=== PATIENT | male | born 1990 | race Caucasian/White ===

== ENCOUNTER 2023-03-10 23:27 | Emergency (ER) | payer MEDICAID, SELFPAY ==
[2023-03-10 23:29] VITALS: BP 154/69; PULSE 83; RESP 18; TEMP 36.6; O2SAT 96; BMI 25.6
--- NOTE | 2023-03-11 00:16 | HMH.EDGENADL ---
Discharge Plan Disposition Patient Disposition: Home, Self-Care Prescriptions Prescriptions: New lidocaine 5 % adhesive patch,medicated 1 patch topical DAILY PRN (Reason: pain) Qty: 30 0RF Rx Instructions: leave on most painful area for up to 12 hrs cyclobenzaprine 5 mg tablet 10 mg PO TID PRN (Reason: muscle spasm) Qty: 60 0RF Referrals Follow up/Referrals: Provider,Referral, MD [Primary Care Provider] - See instructions Activity Restrictions/Add. Instructions Additional Instructions/Restrictions: Please take Tylenol and ibuprofen as needed for pain. Please use Flexeril and lidocaine patches as needed for pain. Please follow-up with your primary care provider. Please return to the emergency department if you develop any new or worsening symptoms or become concerned for your health. Clinical Impressions Clinical Impression: Sciatica of left side Discharge ED Provider: Jeffery Cowan General Adult HPI General Chief complaint: PAIN Stated complaint: back pain, left side Time Seen by Provider: 03/11/23 00:16 Mode of Arrival: Ambulatory Source of Information: Patient Limitations: No Limitations Description of Symptoms (Recalled from ER Triage Doc. by RN): Presents to ED with c/o 8/10 left sciatic nerve pain x 1hour. Patient reports pain is severe and has caused a severe hdx and vomiting. 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 PMH: scoliosis and arthritis. History of Present Illness HPI narrative: 32-year-old male, history of scoliosis and chronic bilateral intermittent sciatica presents with worsening left-sided sciatic pain. He reports it starts in his left side, radiating down his left buttock and his left thigh. Reports some intermittent numbness in the leg as well. Denies any weakness. Denies any recent trauma fever or illness. 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 Related Data Previous Rx's Medication Instructions Recorded cyclobenzaprine 5 mg tablet 10 mg PO TID PRN muscle spasm #60 03/11/23 tabs lidocaine 5 % topical patch 1 patch topical DAILY PRN pain #30 03/11/23 ea Allergies Allergy/AdvReac Type Severity Reaction Status Date / Time No Known Allergies Allergy Verified 03/11/23 00:25 [facility] Disclaimer: The information contained in this section may have been updated after the patient was seen, as this information can be updated by other users. Social History Smoking Status: Current every day smoker alcohol intake: former current occupational status: employed Travel in the last 8 weeks: None ROS Obtained: Yes All systems reviewed & no additional complaints except as documented Physical Exam General General appearance: alert Comment: Uncomfortable appearing secondary to pain Head Head exam: atraumatic and normocephalic Eye Eye exam: Present normal appearance, PERRL and EOMI ENT ENT exam: Present normal oropharynx and normal external ear exam Neck Neck exam: Present normal inspection and full ROM Chest Chest inspection: Present normal inspection and symmetric chest wall rise; Absent tenderness Respiratory Respiratory exam: Present normal lung sounds bilaterally; Absent respiratory distress Cardiovascular Cardiovascular exam: Present regular rate and normal rhythm Abdominal Exam Abdominal exam: Present soft; Absent distention, tenderness or guarding Extremities Exam Extremities exam: Present normal inspection and other (Exacerbation of posterior radicular symptoms with left leg movement); Absent edema or joint swelling Back Exam Back exam: Present normal inspection and tenderness (No midline lumbar tenderness. Left SI/paraspinal tenderness noted.) Neurological Exam Neurological exam: Present alert and oriented X3; Absent motor sensory deficit Psychiatric Psychiatric exam: Present normal affect and normal mood Skin Skin exam: Present warm, dry and normal color Lymphatic Lymphatic Findings: no adenopathy Medical Decision Making Medical
--- NOTE | 2023-03-11 00:38 | PC.NURSE ---
V/O for Oxy IR 5mg PO per
[2023-03-11 01:03] VITALS: BP 143/66; PULSE 87; RESP 18; TEMP 36.6
--- NOTE | 2023-03-11 01:03 | PC.NURSE ---
Report handed off to Adrienne LOPEZ
== END 2023-03-11 01:30 | disposition home or self-care (01) ==
PROVIDERS: Emergency Provider Emergency Medicine
DX: M54.42 Lumbago with sciatica, left side (principal); R51.9 Headache, unspecified; R11.10 Vomiting, unspecified; F17.210 Nicotine dependence, cigarettes, uncomplicated
CPT/HCPCS: 96372; 99283

== ENCOUNTER 2023-03-28 17:28 | Emergency (ER) | payer MEDICAID, SELFPAY ==
[2023-03-28 17:29] VITALS: BP 127/90; PULSE 97; RESP 18; TEMP 36.7; O2SAT 98; BMI 26.0
[2023-03-28 17:32] VITALS: BP 127/90; PULSE 82; O2SAT 96
[2023-03-28 17:43] VITALS: BP 142/87; PULSE 92; O2SAT 99
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
[2023-03-28] MEDS: ACETAMINOPHEN 500MG TAB 1000 MG PO (17:46)
[2023-03-28] MEDS: ONDANSETRON 4MG ODT 4 MG SL (17:46)
--- NOTE | 2023-03-28 17:52 | PC.NURSE ---
lab at bedside collecting bloodwork for state police.
[2023-03-28 17:57] VITALS: BP 142/87; PULSE 89; RESP 18; TEMP 36.7; O2SAT 99
== END 2023-03-28 18:27 ==
PROVIDERS: Emergency Provider Emergency Medicine
DX: T40.2X1A Poisoning by other opioids, accidental (unintentional), initial encounter (principal); R11.0 Nausea; F17.200 Nicotine dependence, unspecified, uncomplicated
CPT/HCPCS: 99283